=== PATIENT | male | born 1980 | race Hispanic/Latino ===

== ENCOUNTER 2022-08-20 04:11 | Inpatient (IN) | payer OTHER ==
[~2022-08-20] VITALS: Ht 160 cm; Wt 83.2 kg
[2022-08-20] MEDS ORDERED: PANTOPRAZOLE 40 MG/VIAL ONE (04:16)
[2022-08-20] MEDS ORDERED: ONDANSETRON 4MG INJ ONE (04:16)
[2022-08-20] MEDS ORDERED: PANTOPRAZOLE 40 MG/VIAL IVP ONE (04:30)
[2022-08-20] MEDS ORDERED: LACTATED RINGERS IV ONE (04:30)
[2022-08-20] MEDS ORDERED: ONDANSETRON 4MG INJ IVP ONE (04:30)
[2022-08-20 05:08] LABS: BASOPHILS % (AUTO) 0.3 % (0.0-5.0); EOSINOPHILS % (AUTO) 1.5 % (0.0-8.0); HEMATOCRIT 26.4 % (42-54); LYMPHOCYTES % (AUTO) 23.2 % (21.0-51.0); MEAN CORPUSCULAR HEMOGLOBIN 30.1 pg (27.0-33.0); MEAN CORPUSCULAR HGB CONC 33.3 g/dL (32.0-36.0); MEAN CORPUSCULAR VOLUME 90.4 fL (79-99); MONOCYTES % (AUTO) 8.3 % (3.0-13.0); NEUTROPHILS % (AUTO) 65.8 % (40.0-77.0); PLATELET COUNT (AUTO) 313 K/uL (130-400); RED BLOOD CELL COUNT(AUTO) 2.92 MIL/uL (4.50-6.20); RED CELL DISTRIBUTION WIDTH 12.1 % (11.0-15.5); WHITE BLOOD COUNT (AUTO) 12.1 K/uL (4.8-10.8)
[2022-08-20 05:20] LABS: CARBON DIOXIDE 26 mmol/L (21-32); CHLORIDE 107 mmol/L (101-111); CREATININE 0.9 mg/dL (0.5-1.5); GLOMERULAR FILTR. RATE CALC 109 mL/min (>90); GLUCOSE,RANDOM 135 mg/dL (70-105); POTASSIUM 3.6 mmol/L (3.5-5.1); SODIUM SERUM 141 mmol/L (136-145); UREA NITROGEN, BLOOD 49 mg/dL (7-18)
[2022-08-20 05:21] LABS: INR 0.95 (0.85-1.15); PROTHROMBIN TIME 11.1 SEC (9.6-11.6)
[2022-08-20 05:22] LABS: PARTIAL THROMBOPLASTIN TIME 22.7 SEC (26.3-35.5)
[2022-08-20 05:24] LABS: ALANINE AMINOTRANSFERASE 29 U/L (12-78); ALBUMIN 2.7 g/dL (3.5-5.0); ASPARTATE AMINOTRANSFERASE 10 U/L (10-37); TOTAL PROTEIN, SERUM 5.2 g/dL (6.0-8.3)
[2022-08-20 05:27] LABS: LIPASE < 50 U/L (114-286)
[2022-08-20] MEDS ORDERED: IOHEXOL-350 75 ML VIAL IV ONE (06:33)
[2022-08-20] MEDS ORDERED: ACETAMINOPHEN 325 MG TAB PO PRN (07:30)
[2022-08-20] MEDS ORDERED: OCTREOTIDE ACETATE 1,250 MCG in 0.9% NACL 250ML 250 ML IV SCH (07:30)
[2022-08-20] MEDS ORDERED: OCTREOTIDE ACETATE 100 MCG/ML AMP IV ONE (07:30)
[2022-08-20] MEDS ORDERED: ONDANSETRON 4MG INJ IVP PRN (07:30)
[2022-08-20 08:07] LABS: APPEARANCE,URINE CLEAR (CLEAR); BILIRUBIN,URINE NEGATIVE (NEGATIVE); COLOR,URINE COLORLESS (YELLOW); GLUCOSE, URINE (UA) NEGATIVE (NEGATIVE); KETONES,URINE NEGATIVE (NEGATIVE); LEUKOCYTE ESTERASE ,URINE 75 Leu/uL (NEGATIVE); NITRATE,URINE NEGATIVE (NEGATIVE); OCCULT BLOOD,URINE NEGATIVE (NEGATIVE); PH,URINE 5.5 (5.0-8.0); PROTEIN,URINE NEGATIVE (NEGATIVE); UROBILINOGEN,URINE 0.2 mg/dL (0.2-1.0)
[2022-08-20 08:12] LABS: AMPHET/METH SCREEN,URINE NEGATIVE (NEGATIVE); BARBITURATE SCREEN, URINE NEGATIVE (NEGATIVE); BENZODIAZEPINES SCREEN,URINE NEGATIVE (NEGATIVE); CANNABINOID SCREEN,URINE NEGATIVE (NEGATIVE); COCAINE SCREEN,URINE NEGATIVE (NEGATIVE); OPIATE SCREEN,URINE NEGATIVE (NEGATIVE); PHENCYCLIDINE SCREEN,URINE NEGATIVE (NEGATIVE)
[2022-08-20 08:14] LABS: BACTERIA,URINE RARE /HPF (None Seen); MUCUS,URINE RARE LPF (None Seen); OTHER CASTS, URINE 1 /LPF (None Seen); RBC,URINE 0-1 /HPF (0-1); SQUAMOUS EPITHELIAL CELL,UR RARE /HPF (0-2)
[2022-08-20] MEDS: CEFTRIAXONE 1G VIAL IVPB SCH ×2 (08:23→18:42)
[2022-08-20] MEDS: PANTOPRAZOLE 40MG INJ 80 MG in 0.9%NACL 100ML 100 ML IVP SCH ×2 (08:24→16:18)
[2022-08-20] MEDS: LACTATED RINGERS 1000ML 1,000 ML IV SCH ×2 (08:24→20:02)
[2022-08-20 08:25] LABS: HEMATOCRIT 25.2 % (42-54)
[2022-08-20 08:54] LABS: THYROID STIMULATING HORMONE 0.57 uIU/mL (0.36-3.74)
[2022-08-20 09:30] VITALS: BP 112/71
[2022-08-20 11:00] VITALS: BP 112/63
[2022-08-20 12:51] LABS: HEMATOCRIT 25.8 % (42-54)
[2022-08-20 16:00] VITALS: BP 130/79
[2022-08-20] MEDS ORDERED: POTASSIUM CHLORIDE 20MEQ/100ML 100 ML IV PRN (16:00)
[2022-08-20] MEDS ORDERED: PEG 3350/NA SULF,BICARB,CL/KCL 4000 ML SOLN PO ONE ×2 (16:00→16:30)
[2022-08-20] MEDS ORDERED: MAGNESIUM 2GM PREMIX 50ML 50 ML IV SCH (16:00)
[2022-08-20] MEDS: POTASSIUM CHLORIDE 10% ELIXIR 20 MEQ/15 ML UDCUP PO PRN ×2 (16:17→18:49)
[2022-08-20 19:14] VITALS: BP 133/79
[2022-08-20 21:00] LABS: % IRON SATURATION 31.7 % (30-44)
[2022-08-20 21:04] LABS: MAGNESIUM 1.9 mg/dL (1.80-2.40); POTASSIUM 4.6 mmol/L (3.5-5.1)
[2022-08-20 22:53] VITALS: BP 128/84
[2022-08-21] VITALS (10 sets, daily range): BP systolic 114–143; BP diastolic 60–80
[2022-08-21] MEDS: PANTOPRAZOLE 40MG INJ 80 MG in 0.9%NACL 100ML 100 ML IVP SCH ×2 (02:37→11:37)
[2022-08-21 04:03] LABS: HEMATOCRIT 23.4 % (42-54)
[2022-08-21 04:12] LABS: CREATININE 0.8 mg/dL (0.5-1.5); POTASSIUM 3.8 mmol/L (3.5-5.1)
[2022-08-21] MEDS: CEFTRIAXONE 1G VIAL IVPB SCH ×2 (06:24→20:01)
[2022-08-21] MEDS ORDERED: PROPOFOL 10 MG/ML 20ML VIAL IV ONE (06:57)
[2022-08-21] MEDS ORDERED: LIDOCAINE PF 100MG/5ML (2%) SYRINGE 5ML ONE (06:57)
[2022-08-21] MEDS ORDERED: ONDANSETRON 4MG INJ ONE (08:19)
[2022-08-21] MEDS ORDERED: 0.9%NACL 1000ML 1,000 ML IV ONE (08:54)
[2022-08-21] MEDS ORDERED: PANTOPRAZOLE 40 MG/VIAL IVP ONE (09:30)
[2022-08-21] MEDS: KCL 20 MEQ ERTAB PO PRN ×2 (10:34→12:44)
[2022-08-21] MEDS: LACTATED RINGERS 1000ML 1,000 ML IV SCH (10:35)
[2022-08-21] MEDS: IRON POLYSACCHARIDES COMPLEX 150 MG CAPSULE PO SCH (20:01)
[2022-08-22 00:15] VITALS: BP 145/77
[2022-08-22] MEDS: PANTOPRAZOLE 40MG INJ 80 MG in 0.9%NACL 100ML 100 ML IVP SCH ×3 (01:00→17:05)
[2022-08-22 04:04] LABS: BASOPHILS % (AUTO) 0.4 % (0.0-5.0); HEMATOCRIT 21.9 % (42-54); LYMPHOCYTES % (AUTO) 28.4 % (21.0-51.0); MEAN CORPUSCULAR HEMOGLOBIN 30.1 pg (27.0-33.0); MEAN CORPUSCULAR HGB CONC 32.9 g/dL (32.0-36.0); MEAN CORPUSCULAR VOLUME 91.6 fL (79-99); MONOCYTES % (AUTO) 8.4 % (3.0-13.0); NEUTROPHILS % (AUTO) 59.3 % (40.0-77.0); PLATELET COUNT (AUTO) 281 K/uL (130-400); RED BLOOD CELL COUNT(AUTO) 2.39 MIL/uL (4.50-6.20); RED CELL DISTRIBUTION WIDTH 12.1 % (11.0-15.5); WHITE BLOOD COUNT (AUTO) 9.8 K/uL (4.8-10.8)
[2022-08-22 04:09] LABS: CREATININE 0.8 mg/dL (0.5-1.5); MAGNESIUM 1.9 mg/dL (1.80-2.40); PHOSPHORUS 4.4 mg/dL (2.5-4.9); POTASSIUM 3.3 mmol/L (3.5-5.1)
[2022-08-22 05:05] VITALS: BP 125/70
[2022-08-22] MEDS: CEFTRIAXONE 1G VIAL IVPB SCH (06:23)
[2022-08-22] MEDS: KCL 20 MEQ ERTAB PO PRN ×3 (06:24→17:06)
[2022-08-22 07:56] VITALS: BP 141/71
[2022-08-22] MEDS: IRON POLYSACCHARIDES COMPLEX 150 MG CAPSULE PO SCH (08:28)
[2022-08-22] MEDS ORDERED: COMPOUND IV REFRIGERATED 1 EACH IVSOLN MISC PRN (09:30)
[2022-08-22] MEDS ORDERED: PANT40TA54 PO (11:19)
[2022-08-22] MEDS ORDERED: AMOX1TAB15 PO (11:19)
[2022-08-22 11:21] LABS: HEMATOCRIT 23.7 % (42-54)
[2022-08-22 12:00] VITALS: BP 131/71
[2022-08-22 16:00] VITALS: BP 139/77
[2022-08-22 19:43] VITALS: BP 141/86
[2022-08-24] MEDS ORDERED: PANTOPRAZOLE 40 MG/VIAL IVP SCH (06:00)
[2022-08-26] MEDS ORDERED: PANTOPRAZOLE 40 MG TAB DR PO SCH (05:00)
== END 2022-08-22 20:25 | disposition home or self-care (01) | DRG 377 ==
LOC: EDH 04:11 → EDHIP 04:12 → 2AH 09:16 → 3CH 08-21 14:33
PROVIDERS: ADMIT Internal Medicine; ATTEND Internal Medicine
PROC: 0DJD8ZZ Inspection of Lower Intestinal Tract, Via Natural or Artificial Opening Endoscopic (ICD-10-PCS; principal; 2022-08-21)
PROC: 0DB78ZX Excision of Stomach, Pylorus, Via Natural or Artificial Opening Endoscopic, Diagnostic (ICD-10-PCS; 2022-08-21)
PROC: 0W3P8ZZ Control Bleeding in Gastrointestinal Tract, Via Natural or Artificial Opening Endoscopic (ICD-10-PCS; 2022-08-21)
DX: K25.4 Chronic or unspecified gastric ulcer with hemorrhage (principal); R57.8 Other shock; D62 Acute posthemorrhagic anemia; N39.0 Urinary tract infection, site not specified; Z20.822 Contact with and (suspected) exposure to COVID-19; Z53.29 Procedure and treatment not carried out because of patient's decision for other reasons; F10.21 Alcohol dependence, in remission; E66.09 Other obesity due to excess calories; Z68.32 Body mass index [BMI] 32.0-32.9, adult
CPT/HCPCS: 36415; 43239; 43255; 45378; 74177; 80048; 80053; 80305; 81001; 82140; 82270; 82728; 83540; 83550; 83605; 83690; 83735; 84100; 84132; 84443; 84484; 85014; 85018; 85025; 85610; 85730; 86850; 86900; 86901; 87040; 87088; 87635; 93005; 99291; A4606; C9113; G0378; J0696; J2001; J2354; J2405; J2704; J3475; J7030; J7050; J7120; Q9967

== ENCOUNTER 2024-04-25 00:39 | Emergency (ER) | payer BC ==
[~2024-04-25] VITALS: Ht 162.6 cm; Wt 81.3 kg
[~2024-04-25 00:39] MED LIST: AMOX1TAB15 PO; PANT40TA54 PO
--- NOTE | 2024-04-25 01:29 | ERN ---
ED Note History of Present Illness Stated Complaint: SORE THROAT, FEVER Chief Complaint: Sore Throat Time Seen by MD: 01:04 Dictation: This is a 43-year-old male who presented to the emergency room with sore throat and fever for the past couple of days. 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 08/22/22 Past Medical History Past Medical History: No Pertinent History Surgical History: Other Surgical History Other: L ARM FX A CHILD RN Note Reviewed/Agreed w/PFSH: Yes Review of System Dictation Constitutional: Negative for fever,chills, and weight loss Eyes: Negative for injury, pain,redness, and discharge ENT: Negative for injury,pain or swelling Cardiovascular: Negative for chest pain, palpitations, and edema Respiratory: Negative for shortness of breath, cough, and wheezing, Abdomen/GI: Negative for abdominal pain, nausea, vomiting, diarrhea, and constipation Back: Negative for injury and pain : Negative for injury, bleeding and discharge MS/Extremity: Negative for injury and deformity Skin: Negative for rash, and discoloration Neuro: Negative for headache, weakness, numbness, tingling, and seizure Psych: Negative for suicide ideation, homicidal ideation, and hallucinations Initial Vital Sign VS Vital Signs Date Time Temp Pulse Resp B/P (MAP) Pulse Ox O2 Delivery O2 Flow Rate FiO2 04/25/24 00:47 103.1 110 20 158/94 97 Room Air 0 Physical Exam Dictation General: awake, alert, NAD Head/Face: Normocephalic, atraumatic Eyes: PERRL, EOMI, vision at baseline ENT: oral cavity clear, TMs clear, no signs of infection erythema of the posterior pharyngeal wall and a small area of pimple on the left tonsillar pillar. No pus or exudate noted Neck: Trachea midline, supple, no nuchal rigidity Cardiovascular: RRR, normal S1/S2, No MRGs, no JVD Respiratory: CTAB, no respiratory distress, No rales or wheezes Abdomen: Soft, non-tender, non-distended, normal bowel sounds, no guarding or rebound. Skin: Warm, dry, normal turgor, no rash MS/Extremity: Pulses equal, no cyanosis, neurovascular intact, FROM Neuro: COAx4, GCS 15, strength 5/5, CN 2-12 intact, normal cerebellar exam, normal gait, Psych: Normal behavior, mood, and affect normal Extremities-trace edema without any palpable cords, Homans sign is negative Results (Laboratory/Radiology) Labs Reviewed?: Yes ED Course ED Course Orders Procedure Category Date Status Time Influenza Type A & B, LAB 04/25/24 Logged Rapid 01:19 Rapid (Group A Strep) LAB 04/25/24 Logged 01:19 Covid19 (Sars Antigen LAB 04/25/24 Logged Rapid) 01:19 Ibuprofen 800 Mg Tab PHA 04/25/24 Complete (Motrin) 01:30 Current Medications Medications (Trade) Dose Ordered Sig/Ade Route PRN Reason Start Time Stop Time Status Last Admin Dose Admin Ibuprofen (moTRIN) 800 mg ONCE ONCE PO 04/25/24 01:30 04/25/24 01:31 DC Vital Signs Date Time Temp Pulse Resp B/P (MAP) Pulse Ox O2 Delivery O2 Flow Rate FiO2 04/25/24 00:47 103.1 110 20 158/94 97 Room Air 0 We will perform diagnostic labs, and administer medications according to the patient's complaint. Once the results are available, will review and personally interpreted the labs to rule out any acute life-threatening emergency the trach require immediate intervention and treatment. I will then re-evaluate the patient after treatment and diagnostic exams have return to determine whether the patient requires any further testing, can safely be discharged home or need further admission to hospital for additional treatment and evaluation. Medical Decision Making MDM MDM: Differential diagnosis: Rationale: Tests considered and ordered secondary to shared decision making inc lude: Previous outside records reviewed: Old ER visits. Risk of complication and/or morbidity or mortality of patient management: None Medications-Per medication reconciliation Need for hospitalization: Patient does not meet criteria for hospitalization. Need for emergency major/minor surgery: No There are no social concerns with this patient. Prescription drug management Prescriptions will include symptomatic care Patient's prior external medical records from other ER visits were reviewed by me as indicated. Prior testing and results from previous visits were reviewed. Prior tests were taken into account with medical decision making and resource utilization, independent historian/historians were used to obtain complete medical history. I independently interpreted the test that were performed, results were reviewed by me and considered findings on radiology if ordered. Medical management and examination interpretation discussions were had by me with other qualified healthcare professionals as indicated for the patient's care. Problem List Problem List: (1) Pharyngitis DX & DISP Disposition: Discharge Departure Impression: Primary Impression: Pharyngitis Condition: Stable Scripts Amoxicillin (Amoxicillin) 875 Mg Tablet 1 TAB PO BID for 7 Days, #14 TAB 0 Refills Prov: JOSE LUIS DAHL MD 04/25/24 Additional Instructions: Patient and the caregiver have been informed of all the diagnostic tests and the imaging conducted during the today's visit to the emergency room and has verbalized understanding of the results I have personally reviewed and interpreted all diagnostic exams performed here in the ER today as well as the vital signs documented by the nursing staff. The patient is now being discharged to home and should follow up with the primary care physician or the specialist as directed by the ER staff. Follow-up with primary care provider in 1 to 2 days. Take medications as directed here in the emergency room. Okay to continue home medications unless otherwise discussed during your visit in the emergency room today. Return to your nearest emergency room if symptoms worsen or if there is no improvement. Call 911 if you need immediate assistance. Take Tylenol or Motrin over-the- counter as needed and if no contraindications are present. Increase oral hydration. A wound culture or urine culture was ordered here in the emergency room department please follow-up with primary care provider and advise them to get repeat ports from our facility. If you had any Jose Luis wrap/splints that were applied here, please do not remove them until you see your primary care or specialty. Also advised to use warm saltwater gargles and Chloraseptic throat spray Referrals: SELF,REFERRAL (PCP) JOSE LUIS DAHL MD Apr 25, 2024 01:29
[2024-04-25 03:05] VITALS: BP 142/88; PULSE 92; RESP 16; TEMP 101.1; O2SAT 98
[2024-04-25] MEDS ORDERED: AMOX875T2 PO (03:10)
[2024-04-25] MEDS: ibuPROFEN 800 MG TAB PO ONE (03:16)
[2024-04-25 03:32] LABS: COVID19 (SARS ANTIGEN RAPID) PRESUMPTIVE NEGATIVE (NEGATIVE); INFLUENZA TYPE A Negative For Type A (NEGATIVE); INFLUENZA TYPE B Negative For Type B (NEGATIVE)
[2024-04-25 03:56] LABS: RAPID GROUP A STREP positive (NEGATIVE)
== END 2024-04-25 03:21 | disposition home or self-care (01) ==
LOC: EDH 00:39
DX: J02.9 Acute pharyngitis, unspecified (principal); Z20.822 Contact with and (suspected) exposure to COVID-19; Z79.899 Other long term (current) drug therapy; Z98.890 Other specified postprocedural states
CPT/HCPCS: 87426; 87804; 87880; 99283